=== PATIENT | male | born 1975 | race Caucasian/White ===

== ENCOUNTER 2019-07-01 15:26 | Emergency (ER) | payer OTHER ==
[~2019-07-01] VITALS: Ht 167.6 cm; Wt 113.4 kg
[2019-07-01] MEDS ORDERED: OSEL75CA PO (19:08)
== END 2019-07-01 20:43 | disposition home or self-care (01) ==
LOC: ER 15:26
DX: J11.1 Influenza due to unidentified influenza virus with other respiratory manifestations (principal)